=== PATIENT | male | born 1970 | race Two or more races ===

== ENCOUNTER 2022-10-17 15:08 | Inpatient (IN) | payer MEDICAID, OTHER ==
[~2022-10-17] VITALS: Ht 167.6 cm; Wt 97.0 kg
[2022-10-17] MEDS ORDERED: HYDROmorphone HCL 2 MG/ML VL/or syr IM ONE (15:30)
[2022-10-17] MEDS ORDERED: LACTULOSE 20Gm/30ML SOLN PO ONE (15:30)
[2022-10-17 16:05] LABS: Hematocrit 39.5 % (41.0-53.0); Hemoglobin 13.6 g/dL (13.5-17.5); Mean Corpuscular Hemoglobin 36.2 pg (28.0-32.0); Mean Corpuscular Hgb Conc. 34.4 g/dL (32.0-36.0); Mean Corpuscular Volume 105.2 fL (80.0-100.0); Red Blood Cells 3.75 10^6/uL (4.5-5.90); Red Cell Distribution Width 14.6 % (11.8-14.3)
[2022-10-17 16:09] LABS: Band Neutrophils % (manual) 0; Basophils % (manual) 0 (0.0-2.0); Blast Cells 0; Eosinophils % (manual) 0 (0-7); Metamyelocytes % 0; Myelocytes % 0; Promyelocytes % 0; Reactive Lymphocytes 0
[2022-10-17 16:16] LABS: Alanine Aminotransferase 32 U/L (16-61); Albumin 1.5 g/dL (3.4-5.0); Anion Gap 16 (5-15); Aspartate Aminotransferase 92 U/L (15-37); Blood Urea Nitrogen 26 mg/dL (7-18); Calcium 7.5 mg/dL (8.5-10.1); Carbon Dioxide 15 mmol/L (21-32); Chloride 103 mmol/L (98-107); GFR African American 58 mL/min; GFR Non-African American 48 mL/min; Glucose 79 mg/dL (74-106); Lipase 181 U/L (73-393); Potassium 3.5 mmol/L (3.5-5.1); Sodium 134 mmol/L (136-145)
[2022-10-17 16:19] LABS: Alkaline Phosphatase 164 U/L (45-117); Total Protein 5.6 g/dL (6.4-8.2)
[2022-10-17 16:44] LABS: Lymphocytes % (manual) 6 (10.0-50.0); Monocytes % (manual) 11 (0-12)
[2022-10-17 16:48] LABS: Bilirubin, Total 27.7 mg/dL (0.2-1.0)
[2022-10-17] MEDS ORDERED: SODIUM CHLORIDE 0.9% 1,000 ML IV ONE (18:45)
[2022-10-17] MEDS ORDERED: DOCUSATE SOD 100 MG CAP PO PRN (21:45)
[2022-10-17] MEDS ORDERED: MORPHINE SULFATE INJ 2 MG/ml SYRG IV PRN (21:45)
[2022-10-17] MEDS ORDERED: ONDANSETRON HCL 4 MG/2 ML VIAL IV PRN (21:45)
[2022-10-17] MEDS ORDERED: NITROGLYCERIN 0.4 MG SL TAB SL PRN (21:45)
[2022-10-17] MEDS ORDERED: DEXTROSE (50%) 50ML SYRG IV PRN (21:45)
[2022-10-17] MEDS ORDERED: TRAZ-227 PO (22:00)
[2022-10-17] MEDS: ACCU-CHEK COMFORT CURVE STRIP VI SCH (22:00)
[2022-10-17] MEDS ORDERED: GLIP10TA9 PO (22:00)
[2022-10-17] MEDS ORDERED: FENO200C22 PO (22:00)
[2022-10-17] MEDS ORDERED: AMLO1TAB22 PO (22:00)
[2022-10-17] MEDS ORDERED: METO-289 PO (22:00)
[2022-10-17] MEDS ORDERED: LORazepam 2MG/ML-1ML VIAL IV PRN (22:30)
[2022-10-17 23:00] LABS: Urine Bacteria FEW /hpf (None Seen); Urine Blood Negative /uL (Negative); Urine Hyaline Cast MOD /lpf (0 - 2); Urine Mucus FEW (None Seen); Urine WBC 7 /hpf (0 - 3)
[2022-10-17 23:39] LABS: INR 1.7 (0.9-1.15); Partial Thromboplastin Time 39.8 SEC (24.5-34.5)
[2022-10-17] MEDS: SODIUM CHLOR 0.9% PF (SALINE LOCK) 10ML VIAL/SYR IV SCH (23:55)
[2022-10-17] MEDS: InsuLIN REG 1unit/0.01ml Soln (100units/ml) SC SCH (23:55)
[2022-10-17] MEDS: CALCIUM GLUC 1,000mg/50ml-NS 50 ML IV SCH (23:57)
[2022-10-17] MEDS: SODIUM CHLORIDE 0.9% 1,000 ML IV SCH (23:57)
[2022-10-18] MEDS: CALCIUM GLUC 1,000mg/50ml-NS 50 ML IV SCH (01:28)
[2022-10-18] MEDS: HYDROcodone-ACET 5/325MG TAB PO PRN ×3 (04:42→23:05)
[2022-10-18] MEDS: LACTULOSE 20Gm/30ML SOLN PO SCH ×4 (04:42→23:25)
[2022-10-18] MEDS: SODIUM CHLOR 0.9% PF (SALINE LOCK) 10ML VIAL/SYR IV SCH ×3 (05:58→23:04)
[2022-10-18] MEDS: ACCU-CHEK COMFORT CURVE STRIP VI SCH ×4 (06:44→23:04)
[2022-10-18] MEDS: InsuLIN REG 1unit/0.01ml Soln (100units/ml) SC SCH ×4 (06:45→22:00)
[2022-10-18 07:19] LABS: Lactic Acid w/Reflex 2.3 mmol/L (0.4-2.0)
[2022-10-18 07:21] LABS: Basophils # (auto) 0.2 10 ^3/uL (0-0.2); Eosinophils # (auto) 0.1 10 ^3/uL (0-0.8); Hematocrit 39.3 % (41.0-53.0); Hemoglobin 13.5 g/dL (13.5-17.5); Potassium 3.5 mmol/L (3.5-5.1); Red Cell Distribution Width 14.5 % (11.8-14.3)
[2022-10-18 07:25] LABS: Basophils % (auto) 1.6 % (0.0-2.0); Eosinophils % (auto) 0.4 % (0.0-7.0); Lymphocytes # (auto) 0.7 10 ^3/uL (0.4-5.4); Mean Corpuscular Hemoglobin 36.6 pg (28.0-32.0); Mean Corpuscular Hgb Conc. 34.4 g/dL (32.0-36.0); Mean Corpuscular Volume 106.4 fL (80.0-100.0); Monocytes # (auto) 0.8 10 ^3/uL (0-1.3); Monocytes % (auto) 7.4 % (0.0-12.0); Neutrophils # (auto) 9.5 10 ^3/uL (1.6-8.6); Neutrophils % (auto) 84.6 % (37.0-80.0); Red Blood Cells 3.69 10^6/uL (4.5-5.90); White Blood Cell 11.2 10^3/uL (4.4-10.8)
[2022-10-18 07:44] LABS: Albumin 1.8 g/dL (3.4-5.0); BUN/Creatinine Ratio 16.9 (10.0-20.0); Calcium 8.5 mg/dL (8.5-10.1); Total Protein 6.4 g/dL (6.4-8.2)
[2022-10-18] MEDS: MULTIPLE VITAMINS W/ MINERALS TAB PO SCH (08:29)
[2022-10-18] MEDS: glipiZIDE 5 MG TAB PO SCH ×2 (08:33→23:03)
[2022-10-18] MEDS: FOLIC ACID 1 MG TAB PO SCH (08:35)
[2022-10-18] MEDS: METOPROLOL SUCCINATE XL 50 MG TAB PO SCH (08:35)
[2022-10-18] MEDS: CYANOCOBALAMIN 500 MCG TAB PO SCH (08:36)
[2022-10-18] MEDS: cefTRIAXone 1GM/50ML D5W 50 ML IV SCH (08:46)
[2022-10-18] MEDS: amLODIPine BESYLATE 5 MG TAB PO SCH (08:52)
[2022-10-18] MEDS: FENOFIBRATE MICRONIZED 200 MG PO SCH (14:06)
[2022-10-18] MEDS: SODIUM CHLORIDE 0.9% 1,000 ML IV SCH ×2 (20:10→22:28)
[2022-10-18 22:56] VITALS: BP 138/70
[2022-10-18] MEDS: traZODone HCL 50 MG TAB PO PRN (23:25)
[2022-10-18 23:34] VITALS: BP 138/70
[2022-10-19 06:01] VITALS: BP 140/71
[2022-10-19] MEDS: SODIUM CHLOR 0.9% PF (SALINE LOCK) 10ML VIAL/SYR IV SCH ×3 (06:31→21:42)
[2022-10-19] MEDS: LACTULOSE 20Gm/30ML SOLN PO SCH ×4 (06:31→22:31)
[2022-10-19] MEDS: ACCU-CHEK COMFORT CURVE STRIP VI SCH ×4 (06:32→21:42)
[2022-10-19] MEDS: InsuLIN REG 1unit/0.01ml Soln (100units/ml) SC SCH ×4 (06:32→21:43)
[2022-10-19 09:00] VITALS: BP 109/71
[2022-10-19] MEDS: FENOFIBRATE MICRONIZED 200 MG PO SCH (10:00)
[2022-10-19] MEDS: MULTIPLE VITAMINS W/ MINERALS TAB PO SCH (10:56)
[2022-10-19] MEDS: CYANOCOBALAMIN 500 MCG TAB PO SCH (10:56)
[2022-10-19] MEDS: FOLIC ACID 1 MG TAB PO SCH (10:57)
[2022-10-19] MEDS: METOPROLOL SUCCINATE XL 50 MG TAB PO SCH (11:00)
[2022-10-19] MEDS: amLODIPine BESYLATE 5 MG TAB PO SCH (11:01)
[2022-10-19] MEDS: glipiZIDE 5 MG TAB PO SCH ×2 (11:04→21:45)
[2022-10-19] MEDS: cefTRIAXone 1GM/50ML D5W 50 ML IV SCH (11:05)
[2022-10-19 13:00] VITALS: BP 121/68
[2022-10-19] MEDS: HYDROcodone-ACET 5/325MG TAB PO PRN ×2 (16:16→22:07)
[2022-10-19 17:00] VITALS: BP 132/75
[2022-10-19 22:00] VITALS: BP 125/66
[2022-10-19] MEDS: traZODone HCL 50 MG TAB PO PRN (22:31)
[2022-10-20 05:00] VITALS: BP 120/63
[2022-10-20] MEDS: SODIUM CHLOR 0.9% PF (SALINE LOCK) 10ML VIAL/SYR IV SCH ×3 (05:56→21:53)
[2022-10-20] MEDS: ACCU-CHEK COMFORT CURVE STRIP VI SCH ×3 (05:57→18:03)
[2022-10-20] MEDS: InsuLIN REG 1unit/0.01ml Soln (100units/ml) SC SCH ×3 (05:57→18:05)
[2022-10-20] MEDS: LACTULOSE 20Gm/30ML SOLN PO SCH ×3 (05:57→18:03)
[2022-10-20 08:50] VITALS: BP 129/69
[2022-10-20] MEDS: cefTRIAXone 1GM/50ML D5W 50 ML IV SCH (09:17)
[2022-10-20] MEDS: methylPREDNISolone SOD SUCC 40 MG/ML VL IV SCH ×2 (09:17→21:53)
[2022-10-20] MEDS: CYANOCOBALAMIN 500 MCG TAB PO SCH (09:18)
[2022-10-20] MEDS: FOLIC ACID 1 MG TAB PO SCH (09:18)
[2022-10-20] MEDS: MULTIPLE VITAMINS W/ MINERALS TAB PO SCH (09:18)
[2022-10-20] MEDS: FENOFIBRATE MICRONIZED 200 MG PO SCH (09:19)
[2022-10-20] MEDS: METOPROLOL SUCCINATE XL 50 MG TAB PO SCH (09:19)
[2022-10-20] MEDS: amLODIPine BESYLATE 5 MG TAB PO SCH (09:19)
[2022-10-20] MEDS: glipiZIDE 5 MG TAB PO SCH (09:27)
[2022-10-20] MEDS: SODIUM CHLORIDE 0.9% 1,000 ML IV SCH (09:28)
[2022-10-20] MEDS: HYDROcodone-ACET 5/325MG TAB PO PRN (12:05)
[2022-10-20 12:50] VITALS: BP 117/70
[2022-10-20 13:10] LABS: Hepatitis A Ab IgM Negative
[2022-10-20 13:11] LABS: Hepatitis B Core IgM Negative
[2022-10-20 13:13] LABS: Hepatitis C Antibody Negative (Negative)
[2022-10-20 17:00] VITALS: BP 132/74
[2022-10-20] MEDS: URSODIOL 300 MG CAP PO SCH (21:51)
[2022-10-20] MEDS: traZODone HCL 50 MG TAB PO PRN (21:52)
[2022-10-20] MEDS: oxyCODONE ER 10 MG TAB PO SCH (21:52)
[2022-10-20 22:00] VITALS: BP 141/80
[2022-10-21] MEDS: LACTULOSE 20Gm/30ML SOLN PO SCH ×4 (00:13→17:15)
[2022-10-21] MEDS: ACCU-CHEK COMFORT CURVE STRIP VI SCH ×5 (00:14→22:14)
[2022-10-21] MEDS: InsuLIN REG 1unit/0.01ml Soln (100units/ml) SC SCH ×5 (00:14→22:16)
[2022-10-21] MEDS: SODIUM CHLORIDE 0.9% 1,000 ML IV SCH (01:56)
[2022-10-21 05:00] VITALS: BP 150/83
[2022-10-21] MEDS: SODIUM CHLOR 0.9% PF (SALINE LOCK) 10ML VIAL/SYR IV SCH ×3 (06:00→22:13)
[2022-10-21 06:10] LABS: Albumin 1.4 g/dL (3.4-5.0); Calcium 7.6 mg/dL (8.5-10.1); Potassium 3.6 mmol/L (3.5-5.1)
[2022-10-21 06:11] LABS: Basophils # (auto) 0 10 ^3/uL (0-0.2); Eosinophils # (auto) 0 10 ^3/uL (0-0.8); Hemoglobin 12.2 g/dL (13.5-17.5)
[2022-10-21 06:14] LABS: BUN/Creatinine Ratio 23.6 (10.0-20.0); Bilirubin, Total 22.7 mg/dL (0.2-1.0); Total Protein 5.3 g/dL (6.4-8.2)
[2022-10-21 06:17] LABS: Basophils % (auto) 0.2 % (0.0-2.0); Eosinophils % (auto) 0.1 % (0.0-7.0); Lymphocytes # (auto) 0.5 10 ^3/uL (0.4-5.4); Lymphocytes % (auto) 4.3 % (10.0-50.0); Mean Corpuscular Hemoglobin 36.1 pg (28.0-32.0); Mean Corpuscular Volume 106.4 fL (80.0-100.0); Monocytes # (auto) 0.4 10 ^3/uL (0-1.3); Monocytes % (auto) 3.1 % (0.0-12.0); Neutrophils # (auto) 10.6 10 ^3/uL (1.6-8.6); Neutrophils % (auto) 92.3 % (37.0-80.0); Nucleated Red Blood Cells % 0.1 %; Red Blood Cells 3.38 10^6/uL (4.5-5.90); Red Cell Distribution Width 14.3 % (11.8-14.3); White Blood Cell 11.5 10^3/uL (4.4-10.8)
[2022-10-21 09:00] VITALS: BP 136/72
[2022-10-21] MEDS: methylPREDNISolone SOD SUCC 40 MG/ML VL IV SCH ×2 (10:00→22:12)
[2022-10-21] MEDS: cefTRIAXone 1GM/50ML D5W 50 ML IV SCH (10:00)
[2022-10-21] MEDS: FENOFIBRATE MICRONIZED 200 MG PO SCH (10:00)
[2022-10-21] MEDS: URSODIOL 300 MG CAP PO SCH ×2 (10:00→22:12)
[2022-10-21] MEDS: FOLIC ACID 1 MG TAB PO SCH (10:01)
[2022-10-21] MEDS: MULTIPLE VITAMINS W/ MINERALS TAB PO SCH (10:01)
[2022-10-21] MEDS: oxyCODONE ER 10 MG TAB PO SCH ×2 (10:01→22:12)
[2022-10-21] MEDS: CYANOCOBALAMIN 500 MCG TAB PO SCH (10:01)
[2022-10-21] MEDS: amLODIPine BESYLATE 5 MG TAB PO SCH (10:02)
[2022-10-21] MEDS: METOPROLOL SUCCINATE XL 50 MG TAB PO SCH (10:02)
[2022-10-21 13:00] VITALS: BP 132/74
[2022-10-21 16:51] VITALS: BP 123/66
[2022-10-21 20:00] VITALS: BP 132/58
[2022-10-21 22:00] VITALS: BP 132/58
[2022-10-21] MEDS: traZODone HCL 50 MG TAB PO PRN (22:19)
[2022-10-22] MEDS: LACTULOSE 20Gm/30ML SOLN PO SCH ×3 (00:10→11:53)
[2022-10-22] MEDS: SODIUM CHLORIDE 0.9% 1,000 ML IV SCH (00:16)
[2022-10-22 05:00] VITALS: BP 120/70
[2022-10-22 05:37] LABS: Basophils # (auto) 0.1 10 ^3/uL (0-0.2); Eosinophils # (auto) 0 10 ^3/uL (0-0.8); Hemoglobin 12.6 g/dL (13.5-17.5); Mean Corpuscular Volume 106.5 fL (80.0-100.0); Neutrophils # (auto) 13.5 10 ^3/uL (1.6-8.6)
[2022-10-22 05:43] LABS: Basophils % (auto) 0.8 % (0.0-2.0); Hematocrit 36.6 % (41.0-53.0); Lymphocytes # (auto) 0.4 10 ^3/uL (0.4-5.4); Lymphocytes % (auto) 2.8 % (10.0-50.0); Mean Corpuscular Hemoglobin 36.6 pg (28.0-32.0); Mean Corpuscular Hgb Conc. 34.3 g/dL (32.0-36.0); Monocytes # (auto) 0.4 10 ^3/uL (0-1.3); Monocytes % (auto) 2.9 % (0.0-12.0); Neutrophils % (auto) 93.5 % (37.0-80.0); Red Blood Cells 3.43 10^6/uL (4.5-5.90); Red Cell Distribution Width 14.3 % (11.8-14.3); White Blood Cell 14.5 10^3/uL (4.4-10.8)
[2022-10-22 05:53] LABS: Albumin 1.6 g/dL (3.4-5.0); Potassium 3.6 mmol/L (3.5-5.1)
[2022-10-22 05:56] LABS: BUN/Creatinine Ratio 26.8 (10.0-20.0); Bilirubin, Total 21.7 mg/dL (0.2-1.0); INR 1.74 (0.9-1.15)
[2022-10-22] MEDS: ACCU-CHEK COMFORT CURVE STRIP VI SCH ×3 (06:13→17:00)
[2022-10-22] MEDS: SODIUM CHLOR 0.9% PF (SALINE LOCK) 10ML VIAL/SYR IV SCH ×2 (06:14→14:14)
[2022-10-22] MEDS: InsuLIN REG 1unit/0.01ml Soln (100units/ml) SC SCH ×3 (06:14→17:00)
[2022-10-22 09:00] VITALS: BP 124/63
[2022-10-22] MEDS: cefTRIAXone 1GM/50ML D5W 50 ML IV SCH (09:33)
[2022-10-22] MEDS: CYANOCOBALAMIN 500 MCG TAB PO SCH (09:33)
[2022-10-22] MEDS: FOLIC ACID 1 MG TAB PO SCH (09:33)
[2022-10-22] MEDS: oxyCODONE ER 10 MG TAB PO SCH (09:33)
[2022-10-22] MEDS: methylPREDNISolone SOD SUCC 40 MG/ML VL IV SCH (09:33)
[2022-10-22] MEDS: MULTIPLE VITAMINS W/ MINERALS TAB PO SCH (09:34)
[2022-10-22] MEDS: URSODIOL 300 MG CAP PO SCH (09:38)
[2022-10-22] MEDS: amLODIPine BESYLATE 5 MG TAB PO SCH (09:38)
[2022-10-22] MEDS: METOPROLOL SUCCINATE XL 50 MG TAB PO SCH (09:39)
[2022-10-22] MEDS: FENOFIBRATE MICRONIZED 200 MG PO SCH (09:39)
[2022-10-22] MEDS ORDERED: FUROSEMIDE 20 MG TAB PO SCH (10:00)
[2022-10-22 13:00] VITALS: BP 127/74
[2022-10-22] MEDS ORDERED: SPIR25TA8 PO (14:10)
[2022-10-22] MEDS ORDERED: URSO300C2 PO (14:10)
[2022-10-22] MEDS ORDERED: METH4PAK PO (14:10)
[2022-10-22 14:46] VITALS: BP 124/63
[2022-10-22 14:52] VITALS: BP 124/63
[2022-10-22] MEDS ORDERED: LACT10PA2 PO (15:29)
[2022-10-22 16:35] VITALS: BP 122/69
== END 2022-10-22 17:45 | disposition home or self-care (01) | DRG 280 ==
LOC: EDBD 15:08 → ER 15:08 → TELE 22:00 → TELE-WESTW 10-18 22:01
PROVIDERS: ADMIT Nurse Practitioner Family; ATTEND Nurse Practitioner Acute Care
DX: K70.30 Alcoholic cirrhosis of liver without ascites (principal); K76.7 Hepatorenal syndrome; E43 Unspecified severe protein-calorie malnutrition; K76.0 Fatty (change of) liver, not elsewhere classified; N17.9 Acute kidney failure, unspecified; E83.51 Hypocalcemia; E87.1 Hypo-osmolality and hyponatremia; E11.9 Type 2 diabetes mellitus without complications; I10 Essential (primary) hypertension; E78.5 Hyperlipidemia, unspecified; G89.4 Chronic pain syndrome; G47.00 Insomnia, unspecified; E66.01 Morbid (severe) obesity due to excess calories; F10.20 Alcohol dependence, uncomplicated; Y90.9 Presence of alcohol in blood, level not specified; Z79.899 Other long term (current) drug therapy; Z68.34 Body mass index [BMI] 34.0-34.9, adult; K83.1 Obstruction of bile duct
CPT/HCPCS: 36415; 71046; 74176; 76705; 80053; 80074; 81001; 82140; 82962; 83605; 83690; 83880; 84484; 85007; 85025; 85027; 85610; 85730; 87040; 93005; 96361; 96365; 96372; G0378; J0696; J1815; J2405

== ENCOUNTER 2022-12-16 12:50 | Inpatient (IN) | payer MEDICAID ==
[~2022-12-16] VITALS: Ht 162.6 cm; Wt 96.2 kg
[~2022-12-16 12:50] MED LIST: AMLO1TAB22 PO; FENO200C22 PO; GLIP10TA9 PO; LACT10PA2 PO; METH4PAK PO; METO-289 PO; SPIR25TA8 PO; TRAZ-227 PO; URSO300C2 PO
[2022-12-16] MEDS ORDERED: DEXTROSE 10% 1,000 ML IV ONE (14:00)
[2022-12-16] MEDS ORDERED: DEXTROSE (50%) 50ML SYRG IV ONE ×5 (14:00→19:45)
[2022-12-16] MEDS ORDERED: ACCU-CHEK COMFORT CURVE STRIP VI ONE ×2 (14:15→14:30)
[2022-12-16 15:18] LABS: Base Excess -5.7 mmol/L (-2.0-2.0)
[2022-12-16 15:20] VITALS: PULSE 71; RESP 18; O2SAT 98
[2022-12-16 15:53] LABS: Basophils # (auto) 0.1 10 ^3/uL (0-0.2); Basophils % (auto) 0.9 % (0.0-2.0); Eosinophils # (auto) 0.3 10 ^3/uL (0-0.8); Hematocrit 29.3 % (41.0-53.0); Hemoglobin 9.8 g/dL (13.5-17.5); Lymphocytes % (auto) 14.1 % (10.0-50.0); Mean Corpuscular Hemoglobin 33.5 pg (28.0-32.0); Mean Corpuscular Hgb Conc. 33.4 g/dL (32.0-36.0); Mean Corpuscular Volume 100.3 fL (80.0-100.0); Monocytes # (auto) 0.6 10 ^3/uL (0-1.3); Monocytes % (auto) 8.7 % (0.0-12.0); Neutrophils # (auto) 5.3 10 ^3/uL (1.6-8.6); Neutrophils % (auto) 72.3 % (37.0-80.0); Red Blood Cells 2.92 10^6/uL (4.5-5.90); Red Cell Distribution Width 16.3 % (11.8-14.3); White Blood Cell 7.3 10^3/uL (4.4-10.8)
[2022-12-16 15:58] LABS: INR 1.44 (0.9-1.15); Prothrombin Time 14.8 sec (9.3-11.8)
[2022-12-16] MEDS ORDERED: DEXTROSE 10% 250 ML IV ONE (16:00)
[2022-12-16] MEDS ORDERED: levoFLOXacin 750MG 150 ML IV ONE (16:00)
[2022-12-16 16:52] LABS: Alanine Aminotransferase 27 U/L (7-40); Albumin 2.6 g/dL (3.2-4.8); Alkaline Phosphatase 86 U/L (46-116); Anion Gap 4.1 (5-15); Aspartate Aminotransferase 52 U/L (13-40); BUN/Creatinine Ratio 9.8 (10.0-20.0); Blood Urea Nitrogen 8 mg/dL (9-23); Calcium 8.4 mg/dL (8.5-10.1); Carbon Dioxide 21.9 mmol/L (20-30); Chloride 108 mmol/L (98-107); Glucose 94 mg/dL (74-106); Potassium 4.2 mmol/L (3.5-5.1); Sodium 134 mmol/L (136-145)
[2022-12-16 16:53] LABS: Bilirubin, Total 5.3 mg/dL (0.2-1.0)
[2022-12-16] MEDS ORDERED: DEXTROSE 10% 1,000 ML IV SCH ×2 (17:00→19:45)
[2022-12-16] MEDS ORDERED: FUROSEMIDE 40 MG/4 ML VIAL IV ONE (17:00)
[2022-12-16] MEDS ORDERED: NITROGLYCERIN 0.4 MG SL TAB SL PRN (17:00)
[2022-12-16] MEDS ORDERED: ACETAMINOPHEN 325 MG TAB PO PRN (17:00)
[2022-12-16] MEDS ORDERED: MORPHINE SULFATE INJ 2 MG/ml SYRG IV PRN (17:00)
[2022-12-16 17:36] LABS: Folate (Folic Acid) 8.53 ng/mL (>5.38)
[2022-12-16 17:55] LABS: LDL Cholesterol 50 mg/dL (< 100)
[2022-12-16 17:56] LABS: HDL Cholesterol 10 mg/dL (40-59)
[2022-12-16 17:57] LABS: Cholesterol 90 mg/dL (< 200)
[2022-12-16 18:15] LABS: Triglycerides 92 mg/dL (< 150)
[2022-12-16] MEDS ORDERED: ALBUTEROL SULF 2.5 MG/0.5ML(0.5%) NEB SOLN NEB PRN (18:15)
[2022-12-16 18:32] VITALS: O2SAT 97
[2022-12-16 18:39] VITALS: BP 126/66; PULSE 65; RESP 19; TEMP 97.6; O2SAT 98
[2022-12-16] MEDS ORDERED: LACTULOSE 20Gm/30ML SOLN PO ONE (19:00)
[2022-12-16 19:30] VITALS: PULSE 88; RESP 14; O2SAT 95
[2022-12-16 19:32] LABS: Amphetamine Screen, Urine Neg (NEGATIVE); Barbiturate Scree,Urine Neg (NEGATIVE); Benzodiazephine Screen, Urine Neg (NEGATIVE); Cannabinoid Screen, Urine Neg (NEGATIVE); Cocaine Screen, Urine Neg (NEGATIVE); Opiate Scree,Urine Neg (NEGATIVE); Phencyclidine Screen, Urine Neg (NEGATIVE)
[2022-12-16 19:45] LABS: Urine Bacteria NONE SEEN /hpf (None Seen); Urine Blood Negative /uL (Negative); Urine Clarity Clear (Clear); Urine Color Yellow (Yellow); Urine Protein, UAD Negative (Negative); Urine Specific Gravity 1.015 (1.001-1.035); Urine WBC <1 /hpf (0 - 3)
[2022-12-16] MEDS: InsuLIN REG 1unit/0.01ml Soln (100units/ml) SC SCH (20:00)
[2022-12-16 22:30] VITALS: BP 124/76; PULSE 94; RESP 22; TEMP 98.1; O2SAT 94
[2022-12-16 23:00] VITALS: BP 124/76; PULSE 94; PULSE 97; RESP 22; RESP 24; RESP 26; TEMP 98.1; O2SAT 94; O2SAT 96
[2022-12-16] MEDS ORDERED: OXY5T PO (23:01)
[2022-12-16] MEDS: URSODIOL 300 MG CAP PO SCH (23:21)
[2022-12-17] VITALS (15 sets, daily range): BP systolic 113–170; BP diastolic 48–87; PULSE 16–121; RESP 14–25; TEMP 97.9–98.7; O2SAT 96–99
[2022-12-17] MEDS: DEXTROSE (50%) 50ML SYRG IV PRN ×6 (00:28→17:03)
[2022-12-17] MEDS: InsuLIN REG 1unit/0.01ml Soln (100units/ml) SC SCH ×5 (00:28→20:25)
[2022-12-17] MEDS: ACCU-CHEK COMFORT CURVE STRIP VI SCH ×7 (00:29→18:04)
[2022-12-17] MEDS: DEXTROSE 10% 1,000 ML IV SCH ×3 (02:39→20:26)
[2022-12-17 05:06] LABS: Basophils # (auto) 0.1 10 ^3/uL (0-0.2); Basophils % (auto) 0.8 % (0.0-2.0); Eosinophils # (auto) 0.2 10 ^3/uL (0-0.8); Eosinophils % (auto) 3.5 % (0.0-7.0); Hematocrit 29.4 % (41.0-53.0); Hemoglobin 9.9 g/dL (13.5-17.5); Lymphocytes % (auto) 15.7 % (10.0-50.0); Mean Corpuscular Hemoglobin 33.7 pg (28.0-32.0); Mean Corpuscular Hgb Conc. 33.9 g/dL (32.0-36.0); Mean Corpuscular Volume 99.6 fL (80.0-100.0); Monocytes # (auto) 0.8 10 ^3/uL (0-1.3); Monocytes % (auto) 11.7 % (0.0-12.0); Neutrophils # (auto) 4.5 10 ^3/uL (1.6-8.6); Neutrophils % (auto) 68.3 % (37.0-80.0); Nucleated Red Blood Cells % 0.1 %; Red Blood Cells 2.95 10^6/uL (4.5-5.90); Red Cell Distribution Width 15.9 % (11.8-14.3); White Blood Cell 6.6 10^3/uL (4.4-10.8)
[2022-12-17 05:24] LABS: Alanine Aminotransferase 27 U/L (7-40); Albumin 2.7 g/dL (3.2-4.8); Alkaline Phosphatase 85 U/L (46-116); Anion Gap 7.5 (5-15); Aspartate Aminotransferase 58 U/L (13-40); BUN/Creatinine Ratio 8.1 (10.0-20.0); Bilirubin, Total 5.5 mg/dL (0.2-1.0); Blood Urea Nitrogen 7 mg/dL (9-23); Calcium 8.5 mg/dL (8.5-10.1); Carbon Dioxide 22.5 mmol/L (20-30); Chloride 104 mmol/L (98-107); Sodium 134 mmol/L (136-145); Total Protein 6.2 g/dL (5.7-8.2)
[2022-12-17 06:05] LABS: Glucose 27 mg/dL (74-106)
[2022-12-17] MEDS ORDERED: LACTULOSE 20Gm/30ML SOLN PO ONE (10:00)
[2022-12-17] MEDS: URSODIOL 300 MG CAP PO SCH ×2 (10:00→20:25)
[2022-12-17] MEDS: FENOFIBRATE MICRONIZED 200 MG PO SCH (10:00)
[2022-12-17] MEDS: ENOXAPARIN SOD 40 MG/0.4 ML SYRINGE SC SCH (10:00)
[2022-12-17] MEDS ORDERED: levoFLOXacin 250MG 50 ML IV SCH (10:00)
[2022-12-17] MEDS: LACTULOSE 20Gm/30ML SOLN PO SCH (10:24)
[2022-12-17] MEDS: FUROSEMIDE 20 MG/2 ML VIAL IV SCH (10:24)
[2022-12-17] MEDS: levoFLOXacin 500MG 100 ML IV SCH (10:24)
[2022-12-17] MEDS ORDERED: ACCU-CHEK COMFORT CURVE STRIP VI SCH (19:45)
[2022-12-17 20:34] LABS: Body Fluid White Blood Cells 175 CUMM (0-200)
[2022-12-17 20:35] LABS: Body Fluid Polymorphonuclear 28 % (0-25); Body Fluid Red Blood Cells 440 CUMM (0-2000)
[2022-12-18] VITALS (16 sets, daily range): BP systolic 103–130; BP diastolic 50–85; PULSE 88–103; RESP 12–21; TEMP 98.2–98.5; O2SAT 95–100
[2022-12-18] MEDS: ACCU-CHEK COMFORT CURVE STRIP VI SCH ×8 (00:04→22:24)
[2022-12-18] MEDS: InsuLIN REG 1unit/0.01ml Soln (100units/ml) SC SCH ×4 (05:48→22:50)
[2022-12-18] MEDS: DEXTROSE 10% 1,000 ML IV SCH (05:53)
[2022-12-18] MEDS: levoFLOXacin 500MG 100 ML IV SCH (08:06)
[2022-12-18] MEDS: FUROSEMIDE 20 MG/2 ML VIAL IV SCH (08:07)
[2022-12-18] MEDS: ENOXAPARIN SOD 40 MG/0.4 ML SYRINGE SC SCH (08:07)
[2022-12-18] MEDS: LACTULOSE 20Gm/30ML SOLN PO SCH ×2 (08:09→17:44)
[2022-12-18] MEDS: FENOFIBRATE MICRONIZED 200 MG PO SCH (08:09)
[2022-12-18] MEDS: URSODIOL 300 MG CAP PO SCH ×2 (08:10→22:24)
[2022-12-18] MEDS ORDERED: oxyCODONE HCL 5MG TAB PO PRN (10:15)
[2022-12-18] MEDS ORDERED: LOPERAMIDE HCL 2 MG CAP/TAB PO PRN (10:15)
[2022-12-18] MEDS ORDERED: LOPERAMIDE HCL 2 MG CAP/TAB PO ONE (10:15)
[2022-12-18] MEDS ORDERED: oxyCODONE ER 20 MG TAB PO PRN ×3 (10:30→11:00)
[2022-12-18] MEDS: oxyCODONE HCL 5MG TAB PO PRN (13:20)
[2022-12-18 13:44] LABS: Alanine Aminotransferase 57 U/L (7-40); Albumin 2.4 g/dL (3.2-4.8); Alkaline Phosphatase 71 U/L (46-116); Anion Gap 8.1 (5-15); Aspartate Aminotransferase 208 U/L (13-40); Blood Urea Nitrogen 5 mg/dL (9-23); Calcium 8.1 mg/dL (8.7-10.4); Carbon Dioxide 24.9 mmol/L (20-30); Chloride 103 mmol/L (98-107); Sodium 136 mmol/L (136-145)
[2022-12-18 13:45] LABS: Bilirubin, Total 6.2 mg/dL (0.2-1.0); Total Protein 5.6 g/dL (5.7-8.2)
[2022-12-18 13:46] LABS: Glucose 203 mg/dL (74-106)
[2022-12-18 13:47] LABS: Potassium 2.7 mmol/L (3.5-5.1)
[2022-12-18] MEDS ORDERED: POTASSIUM EFFERVESENT TAB 25 MEQ PO ONE (14:00)
[2022-12-18] MEDS ORDERED: LACTULOSE 20Gm/30ML SOLN PO SCH (14:00)
[2022-12-18] MEDS ORDERED: POTASSIUM CHL 10 Meq TABLET PO ONE (14:00)
[2022-12-18] MEDS ORDERED: MAGNESIUM SULFATE 1GM/100ML 100 ML IV ONE ×2 (18:00→20:15)
[2022-12-18] MEDS ORDERED: POTASSIUM CHL 20 Meq TABLET PO ONE (22:15)
[2022-12-19] VITALS (21 sets, daily range): BP systolic 107–122; BP diastolic 49–65; PULSE 65–102; RESP 13–39; TEMP 97.8–98.8; O2SAT 94–99
[2022-12-19] MEDS: LACTULOSE 20Gm/30ML SOLN PO SCH ×4 (00:47→16:35)
[2022-12-19] MEDS: ACCU-CHEK COMFORT CURVE STRIP VI SCH ×6 (02:00→23:47)
[2022-12-19 06:01] LABS: Alanine Aminotransferase 76 U/L (7-40); Albumin 2.5 g/dL (3.2-4.8); Alkaline Phosphatase 68 U/L (46-116); Aspartate Aminotransferase 279 U/L (13-40); BUN/Creatinine Ratio 6.3 (10.0-20.0); Bilirubin, Total 5.9 mg/dL (0.2-1.0); Blood Urea Nitrogen 5 mg/dL (9-23); Calcium 8.4 mg/dL (8.7-10.4); Chloride 104 mmol/L (98-107); Glucose 140 mg/dL (74-106); Potassium 3.2 mmol/L (3.5-5.1); Sodium 136 mmol/L (136-145)
[2022-12-19 06:02] LABS: Total Protein 5.8 g/dL (5.7-8.2)
[2022-12-19 06:09] LABS: Basophils # (auto) 0 10 ^3/uL (0-0.2); Basophils % (auto) 0.6 % (0.0-2.0); Eosinophils # (auto) 0.1 10 ^3/uL (0-0.8); Eosinophils % (auto) 2.6 % (0.0-7.0); Hematocrit 26.7 % (41.0-53.0); Hemoglobin 9.1 g/dL (13.5-17.5); Lymphocytes # (auto) 1.3 10 ^3/uL (0.4-5.4); Lymphocytes % (auto) 22.7 % (10.0-50.0); Mean Corpuscular Hemoglobin 33.7 pg (28.0-32.0); Mean Corpuscular Hgb Conc. 34.2 g/dL (32.0-36.0); Mean Corpuscular Volume 98.3 fL (80.0-100.0); Monocytes # (auto) 0.7 10 ^3/uL (0-1.3); Monocytes % (auto) 11.5 % (0.0-12.0); Neutrophils # (auto) 3.7 10 ^3/uL (1.6-8.6); Neutrophils % (auto) 62.6 % (37.0-80.0); Nucleated Red Blood Cells % 0.2 %; Red Blood Cells 2.71 10^6/uL (4.5-5.90); Red Cell Distribution Width 15.5 % (11.8-14.3); White Blood Cell 5.9 10^3/uL (4.4-10.8)
[2022-12-19] MEDS: InsuLIN REG 1unit/0.01ml Soln (100units/ml) SC SCH (06:46)
[2022-12-19] MEDS: FUROSEMIDE 20 MG/2 ML VIAL IV SCH (08:12)
[2022-12-19] MEDS: levoFLOXacin 500MG 100 ML IV SCH (08:12)
[2022-12-19] MEDS: ENOXAPARIN SOD 40 MG/0.4 ML SYRINGE SC SCH (08:13)
[2022-12-19] MEDS: URSODIOL 300 MG CAP PO SCH ×2 (08:13→23:47)
[2022-12-19] MEDS: FENOFIBRATE MICRONIZED 200 MG PO SCH (08:14)
[2022-12-19] MEDS ORDERED: POTASSIUM EFFERVESENT TAB 25 MEQ PO ONE (11:00)
[2022-12-19] MEDS ORDERED: POTASSIUM CHL 10 Meq TABLET PO ONE (11:00)
[2022-12-19 12:07] LABS: Albumin, Body Fluid 0.4 g/dL (Not Estab.); Protein, Body Fluid 0.8 g/dL (.)
[2022-12-20] VITALS (12 sets, daily range): BP systolic 96–147; BP diastolic 48–76; PULSE 87–102; RESP 14–27; TEMP 98.2–98.7; O2SAT 95–100
[2022-12-20] MEDS: ACCU-CHEK COMFORT CURVE STRIP VI SCH ×6 (02:17→21:23)
[2022-12-20 05:33] LABS: Alanine Aminotransferase 96 U/L (7-40); Albumin 2.3 g/dL (3.2-4.8); Alkaline Phosphatase 63 U/L (46-116); Aspartate Aminotransferase 288 U/L (13-40); BUN/Creatinine Ratio 10.5 (10.0-20.0); Bilirubin, Total 4.5 mg/dL (0.2-1.0); Blood Urea Nitrogen 10 mg/dL (9-23); Calcium 8.2 mg/dL (8.7-10.4); Chloride 106 mmol/L (98-107); Glucose 175 mg/dL (74-106); Magnesium 1.3 mg/dL (1.6-2.6); Potassium 3.7 mmol/L (3.5-5.1); Sodium 136 mmol/L (136-145); Total Protein 5.2 g/dL (5.7-8.2)
[2022-12-20 05:45] LABS: Basophils # (auto) 0 10 ^3/uL (0-0.2); Eosinophils # (auto) 0.1 10 ^3/uL (0-0.8); Hemoglobin 8.4 g/dL (13.5-17.5); Mean Corpuscular Volume 98.8 fL (80.0-100.0); Neutrophils # (auto) 3.3 10 ^3/uL (1.6-8.6); Nucleated Red Blood Cells % 0.1 %
[2022-12-20 05:48] LABS: Basophils % (auto) 0.7 % (0.0-2.0); Eosinophils % (auto) 2.4 % (0.0-7.0); Hematocrit 24.5 % (41.0-53.0); Lymphocytes # (auto) 1.1 10 ^3/uL (0.4-5.4); Lymphocytes % (auto) 22.1 % (10.0-50.0); Mean Corpuscular Hemoglobin 33.9 pg (28.0-32.0); Mean Corpuscular Hgb Conc. 34.3 g/dL (32.0-36.0); Monocytes # (auto) 0.5 10 ^3/uL (0-1.3); Monocytes % (auto) 10.3 % (0.0-12.0); Neutrophils % (auto) 64.5 % (37.0-80.0); Red Blood Cells 2.48 10^6/uL (4.5-5.90); Red Cell Distribution Width 14.9 % (11.8-14.3); White Blood Cell 5.1 10^3/uL (4.4-10.8)
[2022-12-20] MEDS: LACTULOSE 20Gm/30ML SOLN PO SCH ×4 (06:19→17:54)
[2022-12-20] MEDS: levoFLOXacin 500MG 100 ML IV SCH (08:20)
[2022-12-20] MEDS: FUROSEMIDE 20 MG/2 ML VIAL IV SCH (08:21)
[2022-12-20] MEDS: ENOXAPARIN SOD 40 MG/0.4 ML SYRINGE SC SCH (08:21)
[2022-12-20] MEDS: URSODIOL 300 MG CAP PO SCH ×2 (08:22→22:00)
[2022-12-20] MEDS: POTASSIUM CHL 20 Meq TABLET PO SCH (10:21)
[2022-12-20] MEDS: MAGNESIUM SULFATE 1GM/100ML 100 ML IV SCH ×2 (10:21→11:11)
[2022-12-20] MEDS: oxyCODONE HCL 5MG TAB PO PRN ×2 (13:33→21:23)
[2022-12-21] MEDS: LACTULOSE 20Gm/30ML SOLN PO SCH ×3 (00:55→12:00)
[2022-12-21] MEDS: ACCU-CHEK COMFORT CURVE STRIP VI SCH ×3 (00:59→10:00)
[2022-12-21 04:56] VITALS: BP 121/71; PULSE 100; RESP 18; TEMP 98.3; O2SAT 98
[2022-12-21 06:10] LABS: Eosinophils # (auto) 0.2 10 ^3/uL (0-0.8); Hemoglobin 8.7 g/dL (13.5-17.5); Lymphocytes # (auto) 1.2 10 ^3/uL (0.4-5.4); Monocytes # (auto) 0.5 10 ^3/uL (0-1.3); Nucleated Red Blood Cells % 0.1 %; White Blood Cell 5.1 10^3/uL (4.4-10.8)
[2022-12-21 06:13] LABS: Basophils # (auto) 0.1 10 ^3/uL (0-0.2); Eosinophils % (auto) 4.1 % (0.0-7.0); Lymphocytes % (auto) 23.8 % (10.0-50.0); Mean Corpuscular Hemoglobin 34.5 pg (28.0-32.0); Mean Corpuscular Hgb Conc. 34.9 g/dL (32.0-36.0); Mean Corpuscular Volume 98.9 fL (80.0-100.0); Neutrophils # (auto) 3.1 10 ^3/uL (1.6-8.6); Neutrophils % (auto) 62.1 % (37.0-80.0); Red Blood Cells 2.53 10^6/uL (4.5-5.90); Red Cell Distribution Width 14.9 % (11.8-14.3)
[2022-12-21 06:35] LABS: Alanine Aminotransferase 118 U/L (7-40); Albumin 2.3 g/dL (3.2-4.8); Alkaline Phosphatase 63 U/L (46-116); Anion Gap 4.8 (5-15); Aspartate Aminotransferase 320 U/L (13-40); Blood Urea Nitrogen 11 mg/dL (9-23); Calcium 8.3 mg/dL (8.7-10.4); Carbon Dioxide 26.2 mmol/L (20-30); Chloride 106 mmol/L (98-107); Glucose 122 mg/dL (74-106); Magnesium 1.6 mg/dL (1.6-2.6); Potassium 3.7 mmol/L (3.5-5.1); Sodium 137 mmol/L (136-145)
[2022-12-21 06:36] LABS: Bilirubin, Total 4.3 mg/dL (0.2-1.0); Total Protein 5.3 g/dL (5.7-8.2)
[2022-12-21 08:00] VITALS: PULSE 114
[2022-12-21] MEDS: POTASSIUM CHL 20 Meq TABLET PO SCH (08:51)
[2022-12-21] MEDS: FUROSEMIDE 20 MG/2 ML VIAL IV SCH (08:51)
[2022-12-21] MEDS: oxyCODONE HCL 5MG TAB PO PRN (08:51)
[2022-12-21] MEDS: levoFLOXacin 500MG 100 ML IV SCH (08:52)
[2022-12-21] MEDS: ENOXAPARIN SOD 40 MG/0.4 ML SYRINGE SC SCH (08:52)
[2022-12-21 09:00] VITALS: BP 103/61; PULSE 96; RESP 18; TEMP 98; O2SAT 97
[2022-12-21] MEDS ORDERED: POTA10TA51 PO (09:36)
[2022-12-21] MEDS ORDERED: LEVO500T91 PO (09:36)
[2022-12-21] MEDS: URSODIOL 300 MG CAP PO SCH (10:00)
== END 2022-12-21 12:00 | disposition home or self-care (01) | DRG 280 ==
LOC: ER 12:50 → EDBD 12:50 → TELE 16:58 → DOU IN ICU 22:21 → TELE-WESTW 12-20 12:26
PROVIDERS: ADMIT Nurse Practitioner Family; ATTEND Family Medicine
PROC: 0W9G3ZZ Drainage of Peritoneal Cavity, Percutaneous Approach (ICD-10-PCS; principal; 2022-12-17)
DX: K70.31 Alcoholic cirrhosis of liver with ascites (principal); K70.11 Alcoholic hepatitis with ascites; J69.0 Pneumonitis due to inhalation of food and vomit; E44.0 Moderate protein-calorie malnutrition; R78.81 Bacteremia; E16.2 Hypoglycemia, unspecified; K76.82 Hepatic encephalopathy; D53.9 Nutritional anemia, unspecified; E66.01 Morbid (severe) obesity due to excess calories; E78.5 Hyperlipidemia, unspecified; W18.39XA Other fall on same level, initial encounter; I10 Essential (primary) hypertension; Z79.84 Long term (current) use of oral hypoglycemic drugs; Z68.36 Body mass index [BMI] 36.0-36.9, adult; Z83.3 Family history of diabetes mellitus; Y93.89 Activity, other specified; Y92.89 Other specified places as the place of occurrence of the external cause; Y99.8 Other external cause status
CPT/HCPCS: 36415; 36600; 70450; 71045; 76705; 76942; 80053; 80061; 80307; 80320; 81001; 82140; 82607; 82746; 82805; 82962; 83036; 83735; 83880; 84132; 84443; 84484; 85025; 85610; 87040; 87077; 87081; 87086; 87088; 87186; 87205; 89051; 93005; 96365; 96375; 96376; 99291; G0378; J1956

== ENCOUNTER 2023-01-08 12:11 | Emergency (ER) | payer MEDICAID ==
[~2023-01-08] VITALS: Ht 167.6 cm; Wt 95.4 kg
[~2023-01-08 12:11] MED LIST changes: +LEVO500T91 PO; +OXY5T PO; +POTA10TA51 PO
[2023-01-08 13:19] LABS: Basophils # (auto) 0.1 10 ^3/uL (0-0.2); Basophils % (auto) 1.2 % (0.0-2.0); Eosinophils # (auto) 0.1 10 ^3/uL (0-0.8); Eosinophils % (auto) 1.7 % (0.0-7.0); Hematocrit 28.1 % (41.0-53.0); Hemoglobin 9.6 g/dL (13.5-17.5); Lymphocytes # (auto) 0.8 10 ^3/uL (0.4-5.4); Lymphocytes % (auto) 17.1 % (10.0-50.0); Mean Corpuscular Hemoglobin 33.7 pg (28.0-32.0); Mean Corpuscular Hgb Conc. 34.1 g/dL (32.0-36.0); Mean Corpuscular Volume 98.9 fL (80.0-100.0); Monocytes # (auto) 0.5 10 ^3/uL (0-1.3); Monocytes % (auto) 10.5 % (0.0-12.0); Neutrophils # (auto) 3.5 10 ^3/uL (1.6-8.6); Neutrophils % (auto) 69.5 % (37.0-80.0); Red Blood Cells 2.84 10^6/uL (4.5-5.90); Red Cell Distribution Width 14.6 % (11.8-14.3)
[2023-01-08 14:11] LABS: Alanine Aminotransferase 20 U/L (7-40); Albumin 2.7 g/dL (3.2-4.8); Alkaline Phosphatase 85 U/L (46-116); Anion Gap 6 (5-15); Aspartate Aminotransferase 26 U/L (13-40); Blood Urea Nitrogen 7 mg/dL (9-23); Calcium 8.1 mg/dL (8.7-10.4); Carbon Dioxide 21 mmol/L (20-30); Chloride 107 mmol/L (98-107); Glucose 174 mg/dL (74-106); Lipase 34 U/L (12-53); Magnesium 1.5 mg/dL (1.6-2.6); Potassium 3.9 mmol/L (3.5-5.1); Sodium 134 mmol/L (136-145)
[2023-01-08 14:12] LABS: Bilirubin, Total 3.3 mg/dL (0.2-1.0); Total Protein 5.7 g/dL (5.7-8.2)
[2023-01-08 14:53] LABS: INR 1.53 (0.9-1.15); Prothrombin Time 15.6 sec (9.3-11.8)
[2023-01-08 15:19] VITALS: PULSE 83; RESP 17; O2SAT 95
[2023-01-08 17:38] VITALS: BP 106/60; PULSE 102; RESP 18; TEMP 98.4; O2SAT 98
== END 2023-01-08 18:04 | disposition home or self-care (01) ==
LOC: ER 12:11
DX: K72.10 Chronic hepatic failure without coma (principal); K70.30 Alcoholic cirrhosis of liver without ascites; I10 Essential (primary) hypertension; E78.5 Hyperlipidemia, unspecified; Z79.2 Long term (current) use of antibiotics; Z79.899 Other long term (current) drug therapy
CPT/HCPCS: 36415; 76705; 76942; 80053; 82962; 83690; 83735; 84484; 85025; 85610; 93005; 99285; C1729